=== PATIENT | male | born 1950 | race Caucasian/White ===

== ENCOUNTER → 2017-05-05 | Outpatient (CLI) | payer OTHER | LOC: FIMAGING 09:14 | PROVIDERS: ATTEND Internal Medicine | DX: M19.072 Primary osteoarthritis, left ankle and foot (principal) ==

== ENCOUNTER 2017-07-10 22:00 | Emergency (ER) | payer OTHER ==
--- NOTE | 2017-07-10 22:05 | EDPHY ---
H & P Time Seen by Provider: 07/10/17 22:03 HPI/ROS: Chief Complaint: Fall, head injury HPI: 67-year-old male states that he drank 2 pt of vodka today. He had a mechanical fall which was witnessed by neighbors. He struck the right side of his forehead and sustained a laceration. He is mildly amnestic to the events but does recall paramedics arriving. Witnesses are unsure whether he had a brief loss of consciousness. Is currently without complaint. He has a history of type 2 diabetes and hypertension. Recently had glaucoma surgery slid off his blood pressure medications. No numbness or weakness. No nausea or vomiting. No chest pain. No extremity injury. ROS: 10 point Review of Systems is negative except as noted in the HPI. PMH: Type 2 diabetes, hypertension, glaucoma surgery Social History: No smoking, occasional alcohol, no recreational drug use Family History: non-contributory Physical Exam: Gen: Awake, Alert, Airway Intact, slurred speech, smells of alcohol HEENT: Head: Patient has laceration to his right eyebrow. There is no bony tenderness or step-offs Eyes: PERRLA, EOMI Ears: No hemotympanum Nose: No epistaxis Mouth: Normal dentition, Airway patent Face: No deformity, patient has an abrasion over his right zygoma, no bony tenderness or step-offs Neck: non-tender, no stepoff, Full ROM without pain Chest: non-tender, lungs CTA Heart: normal heart tones Abd: soft, non-tender, atraumatic, obese Pelvis: non-tender, stable to AP and Lateral compression Back: atraumatic, no midline tenderness Ext: atramatic, full ROM Skin: no rash Neuro: CN II-XII intact, Strength 5/5 in all extremities, sensation intact in all extremities Constitutional: Initial Vital Signs Temperature (C) 36.6 C 07/10/17 22:05 Heart Rate 83 07/10/17 22:05 Respiratory Rate 16 07/10/17 22:05 Blood Pressure 137/83 H 07/10/17 22:05 O2 Sat (%) 92 07/10/17 22:05 O2 Delivery Mode Room Air O2 (L/minute) 2 Medical Decision Making - Diagnostics Imaging Results: Imaging Impressions Cervical Spine CT 07/10/17 22:03 Impression: 1. No acute fracture or soft tissue swelling. 2. If the patient has persistent pain or neurologic deficits, consider cervical spine MRI. 3. Extensive calcified carotid plaque. Findings discussed with Emergency Department physician, Diaz Marquis MD, on 07/10/2017, 22:58. Head CT 07/10/17 22:03 Impression: 1. No acute intracranial hemorrhage or fracture. 2. Minimal right periorbital soft tissue swelling. Findings discussed with Emergency Department physician, Diaz Marquis MD, on 07/10/2017, 22:58. Procedures: Procedure: Laceration repair. Verbal consent was obtained from the patient. The 1 cm laceration on the right eyebrow was anesthetized in the usual fashion. The wound was irrigated, draped and explored to its base with a gloved finger. There were no deep structures involved. No tendon injury was identified. The wound was repaired with 3, 6-0 Ethilon simple interrupted sutures. The wound repair was uncomplicated. The procedure was performed by myself. ED Course/Re-evaluation: CT scans of the head and cervical spine are negative for acute traumatic injury per Dr. Dhaliwal. - Data Points Medications Given: Discontinued Medications Acetaminophen (Tylenol) 1,000 mg PO EDNOW ONE Stop: 07/10/17 23:43 Last Admin: 07/10/17 23:45 Dose: 1,000 mg Sodium Chloride (Ns) 1,000 mls @ 0 mls/hr IV ONCE ONE; Wide Open PRN Reason: Protocol Stop: 07/10/17 23:59 Last Admin: 07/11/17 00:02 Dose: 1,000 mls Departure - Departure Disposition: Home, Routine, Self-Care Clinical Impression: Face lacerations, Abrasion, Alcohol intoxication, Fall Condition: Good Instructions: Care For Your Stitches (ED), Alcohol Intoxication (ED), Abrasion (ED), Facial Laceration (ED) Additional Instructions: Sutures need to be removed in 5 days, you may follow up with primary care physician or return to the emergency department to have this performed. Return to the emergency department for increasing headache, nausea vomiting, numbness, weakness, fevers, chills, or any other concerns. Referrals: NONE *PRIMARY CARE P,. [Primary Care Provider] - As per Instructions
[2017-07-10] MEDS ORDERED: ACETAMINOPHEN 500 MG TAB PO ONE (23:42)
[2017-07-10] MEDS ORDERED: NS 1,000 ML IV ONE (23:58)
[2017-07-11 01:57] VITALS: BP 127/74
== END 2017-07-11 01:57 | disposition home or self-care (01) ==
LOC: EDUNIT#
PROC: 0HQ1XZZ Repair Face Skin, External Approach (ICD-10-PCS; principal; 2017-07-10)
DX: S01.111A Laceration without foreign body of right eyelid and periocular area, initial encounter (principal); F10.129 Alcohol abuse with intoxication, unspecified; E86.9 Volume depletion, unspecified; I10 Essential (primary) hypertension; E11.9 Type 2 diabetes mellitus without complications; W18.39XA Other fall on same level, initial encounter; Y99.8 Other external cause status; Y93.89 Activity, other specified

== ENCOUNTER 2017-07-13 00:17 | Emergency (ER) | payer OTHER ==
--- NOTE | 2017-07-13 00:34 | CPEKG ---
Heart Rate: 72 RR Interval: 833 P-R Interval: 196 QRSD Interval: 92 QT Interval: 420 QTC Interval: 460 P Rock: 75 QRS Rock: 26 T Wave Rock: 47 EKG Severity - NORMAL ECG - EKG Impression: SINUS RHYTHM Electronically Signed By: Lisa Curtis 13-Jul-2017 06:01:25
[2017-07-13 01:12] LABS: PROTIME(PATIENT) 13.4 SEC (12.0-15.0)
[2017-07-13] MEDS ORDERED: IBUPROFEN 600 MG TAB PO ONE (03:21)
--- NOTE | 2017-07-13 03:40 | EDPHY ---
H & P Stated Complaint: trip and fall from standing, facial abrasions, etoh Time Seen by Provider: 07/13/17 00:20 HPI/ROS: HPI: The patient presents brought in by ambulance after a fall which occurred just prior to arrival. The patient was drinking alcohol tonight. He went outside of his apartment to smoke a cigarette and subsequently fell forward onto the cement landing on his face. He thinks he may have lost consciousness. He is now complaining of a headache and facial pain. He has sustained multiple facial abrasions. He also is complaining of neck pain. He does not have any chest pain, shortness of breath, dizziness or diaphoresis. He was in the emergency department 2 days ago for a similar episode. He recently relocated to [place] about 2 months ago from [place] after selling his home. His sister lives locally here. He relapsed on alcohol at the beginning of June because he was feeling lonely. He has plans to attend an AA meeting, though has not been yet. He is brought in by ambulance. REVIEW OF SYSTEMS Constitutional: No fever, no chills. Eyes: No discharge. ENT: No sore throat. Cardiovascular: No chest pain, no palpitations. Respiratory: No cough, no shortness of breath. Gastrointestinal: No abdominal pain, no vomiting. Genitourinary: No hematuria. Musculoskeletal: No back pain. Skin: No rashes. Neurological: No headache. PMHx: Hypertension, type 2 diabetes, alcohol abuse TRAUMA PHYSICAL General Appearance: Alert, obviously intoxicated Head: Left forehead with macerated Y shaped laceration, nose with macerated stellate laceration, abrasion to left cheek Eyes: Pupils equal, round, reactive ENT, Mouth: No hemotypanium, no oral trauma Neck: Posterior midline cervical spine is tender to palpation, trachea midline Respiratory: No chest wall tenderness, no subcutaneous air, lungs clear bilaterallty Cardiovascular: Regular rate and rhythm Abdomen: Abdomen is soft and non-tender, pelvis stable Skin: No lacerations, No abrasion Back: No midline T/L/S pain Extremities: Non-tender, full range of motion Neurological: A&Ox3, GCS=15,normal motor function with 5/5 strength in all 4 extremities, normal sensory exam Source: Patient, EMS Exam Limitations: Intoxication - Personal History Current Tetanus Diphtheria and Acellular Pertussis (TDAP): Yes - Medical/Surgical History Hx Asthma: No Hx Chronic Respiratory Disease: No Hx Diabetes: Yes Hx Cardiac Disease: Yes Hx Renal Disease: No Hx Cirrhosis: No Hx Alcoholism: Yes Hx HIV/AIDS: No Hx Splenectomy or Spleen Trauma: No Other PMH: hypertension, dm 2, alcoholism, cataract surgery - Social History Smoking Status: Current every day smoker Constitutional: Initial Vital Signs Temperature (C) 36.5 C 07/13/17 00:22 Heart Rate 78 07/13/17 00:22 Respiratory Rate 16 07/13/17 00:22 Blood Pressure 163/95 H 07/13/17 00:22 O2 Sat (%) 96 07/13/17 00:22 O2 Delivery Mode Nasal Cannula O2 (L/minute) 2 Allergies/Adverse Reactions: No Known Allergies Allergy (Unverified 07/13/17 00:22) Home Medications: Medication Instructions Recorded NK [No Known Home Meds] 07/13/17 Medical Decision Making - Diagnostics EKG Interpretation: EKG: Complete interpretation has been separately recorded in the [facility] archive. Summary impression: Normal sinus rhythm Imaging Results: CT head without contrast, CT cervical spine without contrast demonstrates no acute injuries, discussed with Dr. Chan of Radiology. Imaging: Discussed imaging studies w/ body recall instructor Radiologist Procedures: LACERATION REPAIR Procedure: Laceration repair. Verbal consent was obtained from the patient. The stellate and macerated 6 cm laceration on the left forehead was anesthetized using bupivacaine with epinephrine. The wound was scrubbed, draped and explored to its base with a gloved finger. There were no deep structures involved. No tendon injury was identified. The wound required extensive debridement . The wound was repaired with simple interrupted sutures of 5-0 nylon. The wound repair was complex. The procedure was performed by myself. LACERATION REPAIR Procedure: Laceration repair. Verbal consent was obtained from the patient. The stellate and macerated 4 cm laceration on the nose was anesthetized using bupivacaine. The wound was scrubbed, draped and explored to its base with a gloved finger. There were no deep structures involved. No tendon injury was identified. The wound required extensive debridement . The wound was repaired with a combination of simple interrupted and horizontal mattress sutures of 5-0 nylon. The wound repair was complex. The procedure was performed by myself. Differential Diagnosis: This is a 67-year-old male with longstanding history of alcohol abuse, hypertension, type 2 diabetes, who presents brought in by ambulance after a fall which occurred in the setting of alcohol intoxication. Patient does not recall the details but apparently he was standing outside as and fell forward landing on his face. He has sustained facial trauma and is complaining of neck pain and headache. He has no neurologic deficits on exam. Differential diagnosis includes subdural hemorrhage, intraparenchymal hemorrhage , cervical spinal fracture, facial lacerations. In the emergency department, patient had medical evaluation of his episode. It is possible this could of been syncopal. EKG was normal, basic labs were unremarkable though CBC clotted as the patient is a difficult stick. We were unable to obtain a CBC. I do not suspect anemia in his case. CT scan of head and neck were performed and were negative. His lacerations were repaired by me. His alcohol level was quite elevated at 335. He was allowed to sober here. I discussed his alcohol use with him at length as this is his 2nd visit in 2 days as with similar injuries in the setting of alcohol intoxication. He is aware of the severity of his problem and does agree that he will attend AA meetings this week. - Data Points Laboratory Results: Laboratory Results 07/13/17 00:50 07/13/17 00:50 07/13/17 07/13/17 07/13/17 00:50 00:50 00:50 WBC REJ RBC REJ Hgb REJ Hct REJ MCV REJ MCH REJ MCHC REJ RDW REJ Plt Count REJ MPV REJ Neut % (Auto) REJ Lymph % (Auto) REJ [place] % (Auto) REJ Eos % (Auto) REJ Baso % (Auto) REJ Nucleat RBC Rel Count REJ Absolute Neuts (auto) REJ Absolute Lymphs (auto) REJ Absolute Monos (auto) REJ Absolute Eos (auto) REJ Absolute Basos (auto) REJ Absolute Nucleated RBC REJ Immature Gran % REJ Immature Gran # REJ PT 13.4 SEC SEC (12.0-15.0) INR 1.00 (0.83-1.16) APTT 20.9 SEC L SEC (23.0-38.0) Sodium 152 mEq/L H mEq/L (135-145) Potassium 4.1 mEq/L mEq/L (3.3-5.0) Chloride 110 mEq/L mEq/L (97-110) Carbon Dioxide 25 mEq/l mEq/l (22-31) Anion Gap 17 mEq/L H mEq/L (8-16) BUN 14 mg/dL mg/dL (7-23) Creatinine 0.6 mg/dL L mg/dL (0.7-1.3) Estimated GFR > 60 Glucose 81 mg/dL mg/dL (70-100) Calcium 8.4 mg/dL L mg/dL (8.5-10.4) Total Bilirubin 0.6 mg/dL mg/dL (0.1-1.4) AST 30 IU/L IU/L (17-59) ALT 29 IU/L IU/L (21-72) Alkaline Phosphatase 72 IU/L IU/L (38-126) Total Protein 7.3 g/dL g/dL (6.3-8.2) Albumin 4.1 g/dL g/dL (3.5-5.0) Ethyl Alcohol 335 mg/dL H mg/dL (0-10) Medications Given: Discontinued Medications Ibuprofen (Motrin) 600 mg PO EDNOW ONE Stop: 07/13/17 03:22 Last Admin: 07/13/17 03:23 Dose: 600 mg Departure - Departure Disposition: Home, Routine, Self-Care Clinical Impression: Alcoholic intoxication Qualifiers: Complication of substance-induced condition: with delirium Qualified Code(s): F10.921 - Alcohol use, unspecified with intoxication delirium Fall Qualifiers: Encounter type: initial encounter Qualified Code(s): W19.XXXA - Unspecified fall, initial encounter Facial laceration Qualifiers: Encounter type: initial encounter Qualified Code(s): S01.81XA - Laceration without foreign body of other part of head, initial encounter Condition: Good Instructions: Facial Laceration (ED) Additional Instructions: Please return to the emergency department if your worse in any way. I recommend that your stitches come out in 5 days. You can return to the emergency department for this or follow up with your primary care doctor. Referrals: Oriana Hawkins MD [Medical Doctor] - As per Instructions
[2017-07-13] MEDS ORDERED: ACETAMINOPHEN 500 MG TAB PO ONE (06:07)
[2017-07-13] MEDS ORDERED: CHLORDIAZEPOXIDE 25MG PREPK#6 BTL TAKEHOME ONE (06:44)
[2017-07-13 07:00] VITALS: BP 150/86
== END 2017-07-13 07:26 | disposition home or self-care (01) ==
LOC: EDUNIT# → EDBD
PROC: 0HQ1XZZ Repair Face Skin, External Approach (ICD-10-PCS; principal; 2017-07-13)
DX: S01.81XA Laceration without foreign body of other part of head, initial encounter (principal); F10.921 Alcohol use, unspecified with intoxication delirium; I10 Essential (primary) hypertension; E11.9 Type 2 diabetes mellitus without complications; F17.200 Nicotine dependence, unspecified, uncomplicated; W01.198A Fall on same level from slipping, tripping and stumbling with subsequent striking against other object, initial encounter; Y92.039 Unspecified place in apartment as the place of occurrence of the external cause
CPT/HCPCS: G0480